=== PATIENT | male | born 1935 | race Caucasian/White ===

== ENCOUNTER 2020-05-01 07:31 | Outpatient (CLI) | payer MEDICARE, BC ==
[2020-05-01 08:30] LABS: EOSINOPHILS # (AUTO) 0.2 X10'3 (0-0.9); EOSINOPHILS % (AUTO) 5.1 % (0-6); HEMATOCRIT 28.7 % (42.0-52.0); HEMOGLOBIN 9.6 g/dl (14.0-17.9); LYMPHOCYTES # (AUTO) 1.3 X10'3 (1.1-4.8); LYMPHOCYTES % (AUTO) 26.5 % (21-51); MEAN CORPUSCULAR HEMOGLOBIN 29.9 PG (27.0-31.0); MEAN CORPUSCULAR HGB CONC 33.6 g/dL (33.0-36.5); MEAN CORPUSCULAR VOLUME 89.1 FL (78-98); MEAN PLATELET VOLUME 6.3 FL (7.4-10.4); MONOCYTES # (AUTO) 0.6 X10'3 (0-0.9); MONOCYTES % (AUTO) 13.4 % (2-12); NEUTROPHILS # (AUTO) 2.6 X10'3 (1.8-7.7); PLATELET COUNT 223 X10'3 (140-440); RED BLOOD COUNT 3.22 X10'6 (4.70-6.10); RED CELL DISTRIBUTION WIDTH 14.7 % (11.5-14.5); WHITE BLOOD COUNT 4.7 X10'3 (4.5-11.0)
[2020-05-01 08:45] LABS: ALBUMIN 3.3 G/DL (3.4-5.0); ANION GAP 6 (8-16); BLOOD UREA NITROGEN 33 MG/DL (7-18); CALCIUM 8.8 MG/DL (8.5-10.1); CHLORIDE 106 MMOL/L (99-107); GLUCOSE 103 MG/DL (70-104); POTASSIUM 5.2 MMOL/L (3.5-5.1); SODIUM 137 MMOL/L (135-145); eGFR 29 ML/MIN
[2020-05-01 08:49] LABS: PARTIAL THROMBOPLASTIN TIME 27 SECONDS (22-32)
== END 2020-05-01 23:59 | disposition home or self-care (01) ==
LOC: SSTAY O 07:31 → EDSTATUS 05-07 12:30
PROVIDERS: ATTEND Student in an Organized Health Care Education/Training Program
DX: I10 Essential (primary) hypertension (principal); I25.10 Atherosclerotic heart disease of native coronary artery without angina pectoris
CPT/HCPCS: 36415; 80048; 85025; 85610; 85730

== ENCOUNTER 2020-06-25 04:56 | Day surgery (SDC) | payer MEDICARE, BC ==
[2020-06-20 08:09] LABS: BASOPHILS # (AUTO) 0.1 X10'3 (0-0.2); BASOPHILS % (AUTO) 1.3 % (0-1); EOSINOPHILS # (AUTO) 0.3 X10'3 (0-0.9); EOSINOPHILS % (AUTO) 6.2 % (0-6); HEMATOCRIT 28.3 % (42.0-52.0); HEMOGLOBIN 9.4 g/dl (14.0-17.9); LYMPHOCYTES # (AUTO) 1.1 X10'3 (1.1-4.8); LYMPHOCYTES % (AUTO) 24.9 % (21-51); MEAN CORPUSCULAR HEMOGLOBIN 29.6 PG (27.0-31.0); MEAN CORPUSCULAR HGB CONC 33.3 g/dL (33.0-36.5); MEAN PLATELET VOLUME 6.2 FL (7.4-10.4); MONOCYTES # (AUTO) 0.6 X10'3 (0-0.9); MONOCYTES % (AUTO) 13.8 % (2-12); NEUTROPHILS # (AUTO) 2.3 X10'3 (1.8-7.7); NEUTROPHILS % (AUTO) 53.8 % (42-75); PLATELET COUNT 206 X10'3 (140-440); RED BLOOD COUNT 3.18 X10'6 (4.70-6.10); RED CELL DISTRIBUTION WIDTH 15.2 % (11.5-14.5); WHITE BLOOD COUNT 4.3 X10'3 (4.5-11.0)
[2020-06-20 08:22] LABS: PARTIAL THROMBOPLASTIN TIME 27 SECONDS (22-32)
[2020-06-20 08:23] LABS: ALBUMIN 3.4 G/DL (3.4-5.0); ANION GAP 6 (8-16); BLOOD UREA NITROGEN 30 MG/DL (7-18); BUN/CREATININE RATIO 13.6 (5.4-32.0); CALCIUM 8.6 MG/DL (8.5-10.1); CHLORIDE 105 MMOL/L (99-107); GLUCOSE 139 MG/DL (70-104); POTASSIUM 4.7 MMOL/L (3.5-5.1); SODIUM 137 MMOL/L (135-145); TOTAL CARBON DIOXIDE 25.9 MMOL/L (24-32); eGFR 29 ML/MIN
[2020-06-25] VITALS (10 sets, daily range): BP systolic 106–156; BP diastolic 49–55
[~2020-06-25] VITALS: Ht 175.3 cm; Wt 76.8 kg
[2020-06-25] MEDS ORDERED: LISI-600 PO (05:19)
[2020-06-25] MEDS ORDERED: ASCO500C17 PO (05:19)
[2020-06-25] MEDS ORDERED: LINA5TAB4 PO (05:19)
[2020-06-25] MEDS ORDERED: CLOP75TA33 PO (05:19)
[2020-06-25] MEDS ORDERED: MV-M1TAB19 PO (05:19)
[2020-06-25] MEDS ORDERED: ZINC30TA2 PO (05:19)
[2020-06-25] MEDS ORDERED: LIRA0.6P SQ (05:19)
[2020-06-25] MEDS ORDERED: ATOR20TA PO (05:19)
[2020-06-25] MEDS ORDERED: PIOG45TA5 PO (05:19)
[2020-06-25] MEDS ORDERED: diphenhydrAMINE 25mg capsule PO PRN (05:20)
[2020-06-25] MEDS ORDERED: normal saline 1,000 ML IV SCH (05:20)
[2020-06-25] MEDS ORDERED: LORazepam 0.5 MG tablet PO PRN (05:20)
--- NOTE | 2020-06-25 05:30 | NUR ---
Pts ordered medications were not loading properly in Py[facility]. Unable to remove from Active med list. Medications were taken out under "stocked meds". Pt refused ativan as ordered. Administered other medications and IV fluids as ordered.
[2020-06-25] MEDS ORDERED: LORazepam 0.5 MG tablet ONE (05:32)
[2020-06-25] MEDS ORDERED: diphenhydrAMINE 25mg capsule PO ONE (05:32)
[2020-06-25] MEDS ORDERED: heparin 1,000unit/ml 10ml vial 10 ML ONE (05:56)
[2020-06-25] MEDS ORDERED: midazolam 2 mg/2 ml injection ONE (05:56)
[2020-06-25] MEDS ORDERED: verapamil 2.5 mg/ml inj IV ONE (05:56)
[2020-06-25] MEDS ORDERED: fentaNYL/PF 50MCG/1 ML 2ML syringe ONE (05:56)
[2020-06-25] MEDS ORDERED: LIDOcaine 1% (10mg/ml)w/preservative injection 20ml MDV ONE (05:56)
[2020-06-25] MEDS ORDERED: nitroGLYCERIN-Tridil 50MG/D5W 250 ML IV ONE (05:57)
[2020-06-25] MEDS ORDERED: iohexol 350MG/ML 100ml bottle IV ONE (05:57)
[2020-06-25] MEDS ORDERED: proCHLORperazine 10 MG/2 ml inj IV PRN (07:50)
[2020-06-25] MEDS ORDERED: HYDROcodone/acetaminophen 10/325mg tab PO PRN (07:50)
[2020-06-25] MEDS ORDERED: normal saline 1000ml 1,000 ML IV SCH (07:50)
[2020-06-25] MEDS ORDERED: HYDROcodone/acetaminophen 5mg/325mg tablet PO PRN (07:50)
[2020-06-25] MEDS ORDERED: OXAZEpam 15mg capsule PO PRN (07:50)
[2020-06-25] MEDS ORDERED: nitroGLYCERIN 0.4mg SUBLingual tab SL PRN (07:50)
[2020-06-25] MEDS ORDERED: ondansetron/PF 4mg/2ml inj IV PRN (07:50)
== END 2020-06-25 12:00 | disposition home or self-care (01) ==
LOC: SSTAY O 04:56
PROVIDERS: ATTEND Student in an Organized Health Care Education/Training Program
DX: R07.89 Other chest pain (principal); I25.10 Atherosclerotic heart disease of native coronary artery without angina pectoris; E78.5 Hyperlipidemia, unspecified; I25.2 Old myocardial infarction; E11.22 Type 2 diabetes mellitus with diabetic chronic kidney disease; I12.9 Hypertensive chronic kidney disease with stage 1 through stage 4 chronic kidney disease, or unspecified chronic kidney disease; N18.30 Chronic kidney disease, stage 3 unspecified; I65.23 Occlusion and stenosis of bilateral carotid arteries; G43.909 Migraine, unspecified, not intractable, without status migrainosus; Z79.899 Other long term (current) drug therapy; Z79.01 Long term (current) use of anticoagulants; Z95.5 Presence of coronary angioplasty implant and graft
CPT/HCPCS: 36415; 80048; 82948; 85025; 85610; 85730; 93005; 93458; 99152; 99153; C1769; C1894; J1644; J2001; J2250; J3010; J7030; Q0163; Q9967; A4620; A5120; A6258; J3490

== ENCOUNTER 2022-05-27 05:51 | Day surgery (SDC) | payer MEDICARE, BC ==
[2022-05-22 15:51] LABS: CLARITY,URINE CLEAR (Clear); GLUCOSE, URINE NEGATIVE (Neg); KETONES,URINE NEGATIVE (Neg); LEUKOCYTE ESTERASE ,URINE NEGATIVE (Neg); NITRITES, URINE NEGATIVE (Neg); OCCULT BLOOD,URINE NEGATIVE (Neg); PROTEIN,URINE NEGATIVE (Neg); UROBILINOGEN,URINE 0.2 E.U/dL (0.2-1.0)
[2022-05-22 15:53] LABS: COLOR,URINE STRAW (Yellow); UA COLLECTION TYPE CLN CATCH MIDSTREAM
[2022-05-22 16:07] LABS: ALBUMIN 3.5 G/DL (3.4-5.0); ALBUMIN/GLOBULIN RATIO 1.1 (1.1-1.5); ALKALINE PHOSPHATASE 49 IU/L (46-116); BASOPHILS % (AUTO) 1.1 % (0-1); BLOOD UREA NITROGEN 29 MG/DL (7-18); CALCIUM 8.9 MG/DL (8.5-10.1); CHLORIDE 104 MMOL/L (99-107); CREATININE 1.81 MG/DL (0.60-1.10); EOSINOPHILS # (AUTO) 0.1 X10'3 (0-0.9); EOSINOPHILS % (AUTO) 3.6 % (0-6); LYMPHOCYTES % (AUTO) 24.6 % (21-51); MEAN CORPUSCULAR HEMOGLOBIN 29.8 PG (27.0-31.0); MEAN CORPUSCULAR HGB CONC 33.5 g/dL (33.0-36.5); MEAN PLATELET VOLUME 6.4 FL (7.4-10.4); MONOCYTES # (AUTO) 0.6 X10'3 (0-0.9); NEUTROPHILS # (AUTO) 2.3 X10'3 (1.8-7.7); NEUTROPHILS % (AUTO) 55.7 % (42-75); PRE OP ALT 23 U/L (30-65); PRE OP ANION GAP 3 (8-16); PRE OP AST 29 U/L (10-37); PRE OP BILIRUB, TOTAL 0.3 MG/DL (0.0-1.0); PRE OP GLUCOSE 103 MG/DL (70-104); PRE OP HEMATOCRIT 24.8 % (42.0-52.0); PRE OP PLATELET COUNT 185 X10'3 (140-440); PRE OP POTASSIUM 4.3 MMOL/L (3.4-5.1); PRE OP SODIUM 133 MMOL/L (135-145); RED BLOOD COUNT 2.79 X10'6 (4.70-6.10); RED CELL DISTRIBUTION WIDTH 15.6 % (11.5-14.5); TOTAL CARBON DIOXIDE 25.9 MMOL/L (24-32); TOTAL PROTEIN 6.8 G/DL (6.4-8.2); eGFR 36 ML/MIN
[2022-05-22 16:09] LABS: PRE OP HEMOGLOBIN 8.3 g/dL (14.0-17.9)
[2022-05-22 16:54] LABS: PLATELET ESTIMATE NORMAL
[2022-05-22 16:55] LABS: ACANTHOCYTES 1+; ANISOCYTOSIS 1+; ELLIPTOCYTES FEW; SCHISTOCYTES FEW
[~2022-05-27] VITALS: Ht 177.8 cm; Wt 70.0 kg
[2022-05-27] VITALS (9 sets, daily range): BP systolic 72–172; BP diastolic 60–79
[~2022-05-27 05:51] MED LIST: ATOR20TA PO; CLOP75TA33 PO; LINA5TAB4 PO; LIRA0.6P SQ; LISI10TA27 PO; PIOG45TA5 PO; ceFAZolin inj. 2,000 MG in dextrose 5%-water 100 ML IV ONE; famotidine 20mg tablet PO ONE; ringers solution, lacted 1,000 ML IV SCH
[2022-05-27] MEDS ORDERED: BUPIVAcaine/PF 2.5 mg/ml (0.25%) 30ml vial ONE ×2 (08:50→08:56)
[2022-05-27] MEDS ORDERED: fentaNYL/PF 50MCG/1 ML 2ML syringe ONE (09:09)
[2022-05-27] MEDS ORDERED: rocuronium 10mg/ml inj IV ONE (09:10)
[2022-05-27] MEDS ORDERED: etomidate 2mg/ml inj. ONE ×2 (09:10→09:31)
[2022-05-27] MEDS ORDERED: morphine 2 MG/ML inj. syringe IV PRN (09:25)
[2022-05-27] MEDS ORDERED: hydrALAZINE 20mg/ml inj. IV PRN (09:25)
[2022-05-27] MEDS ORDERED: ringers solution, lacted 1,000 ML IV SCH (09:25)
[2022-05-27] MEDS ORDERED: morphine 4 MG/ML inj SYRINge IV PRN (09:25)
[2022-05-27] MEDS ORDERED: labetalol 20mg/4ml (5mg/ml) syringe IV PRN (09:25)
[2022-05-27] MEDS ORDERED: ondansetron/PF 4mg/2ml inj IV PRN (09:25)
[2022-05-27] MEDS ORDERED: fentaNYL/PF 50MCG/1 ML 2ML syringe IV PRN ×2 (09:25)
[2022-05-27] MEDS ORDERED: desflurane 240ml liquid inh. IH ONE (09:31)
[2022-05-27] MEDS ORDERED: neostigmine methylsulfate 1 MG/ML 10ml vial ONE (09:31)
[2022-05-27] MEDS ORDERED: dexamethasone sod phosphate 10mg/ml inj ONE (09:31)
[2022-05-27] MEDS ORDERED: labetalol 20mg/4ml (5mg/ml) syringe IV ONE (10:02)
[2022-05-27] MEDS ORDERED: ondansetron/PF 4mg/2ml inj ONE (10:03)
[2022-05-27] MEDS ORDERED: glycopyrrolate 0.2mg/ml inj ONE (10:04)
--- NOTE | 2022-05-27 11:25 | NUR ---
Received from OR via BED, accompanied by Anesthesiologist and report given by Anesthesiologist. PATIENT WAKING UP, NO S/S OF PAIN, V/S WNL, SCD ON, 20G TO RUE, ABDOMEN LAP SITE CLEAN W/ NO S/S OF COMPLICATIONS. F/C DRAINING CLEAR YELLOW URINE WHICH PATIENT WILL GO HOME WITH PER MD GEE
[2022-05-27] MEDS ORDERED: HYDROcodone/acetaminophen 5mg/325mg tablet PO ONE (12:10)
--- NOTE | 2022-05-27 12:55 | NUR ---
PATIENT A&OX4, STATES 4/10 PAIN NORCO GIVEN FOR PAIN, V/S WNL, SCD ON, 20G TO RUE, ABDOMEN LAP SITE CLEAN W/ NO S/S OF COMPLICATIONS. F/C DRAINING CLEAR YELLOW URINE WHICH PATIENT WILL GO HOME WITH PER MD GEE. . I HAVE DEMONSTRATED F/C CARE AND PATIENT HAS VERBALIZED UNDERSTANDING ON HOME CARE. EDUCATION PACKET GIVEN TO PATIENT WELL FOR F/C MANAGEMENT FOR HOME. PATIENT AGREES HE WILL CALL DR GEE OFFICE IN AM FOR F/C D/C APPT IN OFFICE.. I HAVE REVIEWED D/C INSTRUCTIONS WITH PATIENT and they have verbalized understanding patient d/c home with all belongings and family gave transport home.
--- NOTE | 2022-05-27 12:58 | NUR ---
PIV AND SCD D/C PRIOR TO D/C WITHOUT S/S OF COMPLICATIONS
== END 2022-05-27 12:55 | disposition home or self-care (01) ==
LOC: PAS 05:51
PROVIDERS: ATTEND Surgery
DX: K40.20 Bilateral inguinal hernia, without obstruction or gangrene, not specified as recurrent (principal); E11.22 Type 2 diabetes mellitus with diabetic chronic kidney disease; D64.9 Anemia, unspecified; N18.2 Chronic kidney disease, stage 2 (mild); Z79.899 Other long term (current) drug therapy; Z95.5 Presence of coronary angioplasty implant and graft; Z98.890 Other specified postprocedural states; Z20.822 Contact with and (suspected) exposure to COVID-19; Z87.891 Personal history of nicotine dependence; I25.2 Old myocardial infarction; E78.5 Hyperlipidemia, unspecified
CPT/HCPCS: 36415; 49650; 80053; 81003; 82948; 85025; 87811; C1758; C1781; J0690; J1100; J2270; J2405; J2710; J3010; J3490; J7030; J7060; J7120; Z7506; Z7508; Z7512; 85008; A4215; A4618

== ENCOUNTER 2025-03-01 08:59 | Day surgery (SDC) | payer MEDICARE, BC ==
[~2025-03-01] VITALS: Ht 177.8 cm; Wt 68.8 kg
[2025-03-01] VITALS (10 sets, daily range): BP systolic 122–235; BP diastolic 63–100; PULSE 64–78; RESP 10–17; O2SAT 98–100
[~2025-03-01 08:59] MED LIST changes: -CLOP75TA33 PO; +EMPA10TA PO; -LIRA0.6P SQ; -LISI10TA27 PO; -PIOG45TA5 PO; -ceFAZolin inj. 2,000 MG in dextrose 5%-water 100 ML IV ONE; -famotidine 20mg tablet PO ONE; -ringers solution, lacted 1,000 ML IV SCH
[2025-03-01] MEDS ORDERED: LIDOcaine 2% Viscous 15ml cup ONE (10:56)
[2025-03-01] MEDS ORDERED: fentaNYL/PF 50MCG/1 ML 2ML syringe ONE (10:57)
[2025-03-01] MEDS ORDERED: simethicone 40mg/0.6ml oral drops 30ml ONE (10:58)
[2025-03-01] MEDS ORDERED: diphenhydrAMINE 50 mg/ml inj ONE (10:58)
[2025-03-01] MEDS ORDERED: MIDAZolam 1 MG/ML 5ML VIAL ONE (10:58)
== END 2025-03-01 12:15 | disposition home or self-care (01) ==
LOC: OR 08:59
PROVIDERS: ATTEND Internal Medicine Gastroenterology
DX: K22.2 Esophageal obstruction (principal); K29.71 Gastritis, unspecified, with bleeding; Z93.1 Gastrostomy status
CPT/HCPCS: 43239; 88305; A4620; G0500; J2250; J3010; J7030; Z7512; 99152; J1200